=== PATIENT | male | born 1965 | race American Indian/Alaskan Native ===

== ENCOUNTER 2020-10-08 09:36 | Outpatient (CLI) | payer OTHER ==
[2020-10-08 10:52] LABS: Blood Urea Nitrogen 17 mg/dL (9-20)
--- NOTE | 2020-10-08 11:57 | Cat Scan Report ---
CT angio chest INDICATION: ELEVATED D-DIMER,SINUS TACHYCRDIA,. TECHNIQUE: All CT scans at this location are performed using CT dose reduction for ALARA by means of automated e xposure control. 3 plane MIP and/or 3-D reconstructions were produced. COMPARISON: None available. FINDINGS: Mediastinum, eliseo and axillae are negative. Moderately large hiatal hernia. No pleural fluid. No significant parenchymal disease. No evidence of pulmonary embolus. IMPRESSION: 1. Negative for pulmonary embolus or other acute abnormality. Signer Name: Mukund Olmstead MD Signed: 10/08/2020 11:52 AM Workstation Name: [id number]
== END 2020-10-08 09:37 | disposition home or self-care (01) ==
LOC: CT 09:36
PROVIDERS: ATTEND Internal Medicine Cardiovascular Disease
DX: R00.0 Tachycardia, unspecified (principal); R79.89 Other specified abnormal findings of blood chemistry; R53.83 Other fatigue; K44.9 Diaphragmatic hernia without obstruction or gangrene
CPT/HCPCS: 36415; 71275; 82565; 84520; Q9967